=== PATIENT | female | born 1930 | race Caucasian/White ===

== ENCOUNTER → 2018-09-23 | Outpatient (CLI) | payer MEDICARE | END | disposition home or self-care (01) | LOC: SHCH 10:25 | PROVIDERS: ATTEND Internal Medicine Cardiovascular Disease | DX: I08.2 Rheumatic disorders of both aortic and tricuspid valves (principal) | CPT/HCPCS: 93306 ==

== ENCOUNTER 2019-01-24 07:28 | Day surgery (SDC) | payer MEDICARE ==
[2019-01-23 11:45] VITALS: BP 138/65
[2019-01-23 11:58] LABS: BASOPHILS % (AUTO) 0.2 % (0.0-5.0); EOSINOPHILS % (AUTO) 3.3 % (0.0-8.0); HEMATOCRIT 42.8 % (36-48); LYMPHOCYTES % (AUTO) 20.1 % (21.0-51.0); MEAN CORPUSCULAR HEMOGLOBIN 33.9 pg (27.0-33.0); MEAN CORPUSCULAR HGB CONC 34.1 g/dL (32.0-36.0); MEAN CORPUSCULAR VOLUME 99.6 fL (79-99); NEUTROPHILS % (AUTO) 68.4 % (40.0-77.0); NUCLEATED RED BLOOD CELLS 0.1 % (0.0-0.19); PLATELET COUNT (AUTO) 156 K/uL (130-400); RED CELL DISTRIBUTION WIDTH 13.4 % (11.0-15.5); WHITE BLOOD COUNT (AUTO) 7.2 K/uL (4.8-10.8)
[2019-01-23 12:23] LABS: CREATININE 0.8 mg/dL (0.5-1.5); POTASSIUM 4.5 mmol/L (3.5-5.1)
[2019-01-23 12:45] LABS: INR 1.14 (0.85-1.15); PROTHROMBIN TIME 11.9 SEC (9.6-11.6)
[2019-01-23 13:06] LABS: PARTIAL THROMBOPLASTIN TIME 29.4 SEC (26.3-35.5)
[2019-01-24] VITALS (8 sets, daily range): BP systolic 137–153; BP diastolic 44–83
[~2019-01-24] VITALS: Ht 163.8 cm; Wt 60.6 kg
[~2019-01-24 07:28] MED LIST: ACET-2743 PO; ATORVASTATIN PO; BIOT5000 PO; CALC500T13 PO; CLON0.5T12 PO; DIGO125T87 PO; PROP150T28 PO; SODIUM CHLORIDE 0.9% 500ML 500 ML IV SCH; SPIR25TA6 PO; VANCOMYCIN 1GM+NS 250ML 250 ML IV SCH; VIT1CAPS47 PO; WARF-67 PO; WARF3TAB59 PO
--- NOTE | 2019-01-24 07:35 | NUR ---
PATIENT ARRIVED PATIENT ARROIVED TO DAY PATIENT ACCOMPANIED BY DAUGHTER AND SPOUSE. PATIENT AAOX3, RESPIRATIONS UNLABORED, VITAL SIGNS STABLE, DENIES ANY PAIN AT THIS TIME. PROCEDURE CONFIRMED AND VERIFIED WITH PATIENT, ALL QUESTIONS/CONCERNS ADDRESSED. HOSPITAL ROUTINE EXPLAINED TO PATIENT AND FAMILY, BOTH VERBALIZED UNDERSTANDING SIDE RAILS UP X2, CALL BEL IN REACH, BED IN LOWEST POSITION.
[2019-01-24] MEDS ORDERED: BUPIVACAINE/PF 0.25% 10ML VIAL IJ ONE (08:46)
[2019-01-24] MEDS ORDERED: MIDAZOLAM HCL 1 MG/ML 2ML VIAL ONE ×4 (08:46→10:43)
[2019-01-24] MEDS ORDERED: CEFAZOLIN SODIUM 1 GM VIAL ONE (08:46)
[2019-01-24] MEDS ORDERED: MEPERIDINE-PF 25 MG/ML SYG ONE ×4 (08:46→10:43)
[2019-01-24] MEDS ORDERED: LIDOCAINE HCL 1% MDV 50ML VIAL ONE (08:46)
--- NOTE | 2019-01-24 09:15 | NUR ---
PATIENT TRANSFERRED PATIENT TAKEN TO INBOUND CUSTOMER SERVICE REPRESENTATIVE VIA BED BY PRISCILLA LOWRY AND PRISCILLA LANDEROS. PATIENT FAMILY INSTRUCTED TO WAIT IN ROOM IN ORDER TO SPEAK WITH MD AFTER PROCEDURE IS COMPLETE, BOTH VERBALIZED UNDERSTANDING.
[2019-01-24] MEDS ORDERED: VANCOMYCIN 1GM+NS 250ML 500 ML IV ONE (09:32)
[2019-01-24] MEDS ORDERED: THROMBIN-JMI 5000 UNIT/VIAL TP ONE (10:58)
[2019-01-24] MEDS ORDERED: TRAM50TA4 PO (11:39)
--- NOTE | 2019-01-24 11:55 | NUR ---
PATIENT RETURNED PATIENT BROUGHT BACK FROM RN LVN VIA BED BY PRISCILLA RAMIREZ. PATIENT AAOX3, VITAL SIGNS STABLE, RESPIRATIONS UNLABORED, PATIENT DENIES ANY PAIN AT THIS TIME. PATIENT STATES SHE DOES FEEL SORE TO LEFT UPPER CHEST WALL. PRESSURE DRESSING IN PLACE TO LEFT UPPER CHEST WALL. DRESSING IS DRY AND INTACT, NO BLEEDING OR DRAINAGE NOTED. PATIENT'S DAUGHTER AND SPOUSE AT BEDSIDE. PATIENT INSTRUCTD TO STAY IN BED FOR 3 HOURS, PT VERBALIZED UNDERSTANDING.
--- NOTE | 2019-01-24 12:10 | NUR ---
SITE CHECK LEFT UPPER CHEST WITH PRESSURE DRESSING IN PLACE. DRESSING DRY AND INTACT WITHOUT DRAINAGE OR BLEEDING , AREA NONTENDER.
--- NOTE | 2019-01-24 12:25 | NUR ---
SITE CHECK LEFT UPPER CHEST WITH PRESSURE DRESSING IN PLACE. DRESSING DRY AND INTACT WITHOUT DRAINAGE OR BLEEDING , AREA NONTENDER.
--- NOTE | 2019-01-24 12:40 | NUR ---
SITE CHECK LEFT UPPER CHEST WITH PRESSURE DRESSING IN PLACE. DRESSING DRY AND INTACT WITHOUT DRAINAGE OR BLEEDING , AREA NONTENDER.
--- NOTE | 2019-01-24 13:10 | NUR ---
SITE CHECK LEFT UPPER CHEST WITH PRESSURE DRESSING IN PLACE. DRESSING DRY AND INTACT WITHOUT DRAINAGE OR BLEEDING , AREA NONTENDER.
--- NOTE | 2019-01-24 13:40 | NUR ---
SITE CHECK LEFT UPPER CHEST WITH PRESSURE DRESSING IN PLACE. DRESSING DRY AND INTACT WITHOUT DRAINAGE OR BLEEDING , AREA NONTENDER.
--- NOTE | 2019-01-24 14:09 | NUR ---
DISCHARGE INSTRUCTIONS DISCHARGE INSTRUCTIONS PROVIDED TO PATIENT'S DAUGHTER, FOLLOW UP APPOINTMENT PROVIDED WELL. INSTRUCTED TO KEEP PRESSURE DRESSING IN PLACE UNTIL PATIENT SEES DR MONROE TOMORROW. PRESCRIPTION FOR TRAMADOL PROVIDED TO PATIENT'S DAUGHTER AND INSTRUCTIONS ON TRAMADOL PROVIDED. ALL QUESTIONS/CONCERNS ADDRESSED.
== END 2019-01-24 15:15 | disposition home or self-care (01) ==
LOC: DAH 07:28
PROVIDERS: ATTEND Internal Medicine Cardiovascular Disease
DX: T82.191A Other mechanical complication of cardiac pulse generator (battery), initial encounter (principal); Y83.8 Other surgical procedures as the cause of abnormal reaction of the patient, or of later complication, without mention of misadventure at the time of the procedure; I44.2 Atrioventricular block, complete; E11.9 Type 2 diabetes mellitus without complications; E78.5 Hyperlipidemia, unspecified; I11.0 Hypertensive heart disease with heart failure; I50.30 Unspecified diastolic (congestive) heart failure; K21.9 Gastro-esophageal reflux disease without esophagitis; I48.0 Paroxysmal atrial fibrillation; Z88.2 Allergy status to sulfonamides; Z79.01 Long term (current) use of anticoagulants; Z79.899 Other long term (current) drug therapy; Z82.49 Family history of ischemic heart disease and other diseases of the circulatory system; Z82.3 Family history of stroke
CPT/HCPCS: 33222; 36415; 80048; 85025; 85610; 85730; 87070 ×2; 87076 ×2; 93005; A4215; A4216; A4221; A4222; A4223 ×3; A4606; A4663; J0690; J2175 ×4; J2250 ×4; J3370; J3490 ×3; 99156; 99157

== ENCOUNTER 2019-02-03 15:19 | Inpatient (IN) | payer MEDICARE ==
[~2019-02-03] VITALS: Ht 162.6 cm; Wt 62.1 kg
[~2019-02-03 15:19] MED LIST changes: -CLON0.5T12 PO; +CLON0.5T4 PO; -SODIUM CHLORIDE 0.9% 500ML 500 ML IV SCH; +TRAM50TA4 PO; -VANCOMYCIN 1GM+NS 250ML 250 ML IV SCH
[2019-02-03 16:08] LABS: BASOPHILS % (AUTO) 0.8 % (0.0-5.0); EOSINOPHILS % (AUTO) 1.4 % (0.0-8.0); HEMATOCRIT 41.3 % (36-48); LYMPHOCYTES % (AUTO) 10.6 % (21.0-51.0); MEAN CORPUSCULAR HEMOGLOBIN 34.2 pg (27.0-33.0); MEAN CORPUSCULAR HGB CONC 34.7 g/dL (32.0-36.0); MEAN CORPUSCULAR VOLUME 98.4 fL (79-99); MONOCYTES % (AUTO) 6.8 % (3.0-13.0); NEUTROPHILS % (AUTO) 80.4 % (40.0-77.0); NUCLEATED RED BLOOD CELLS 0.1 % (0.0-0.19); PLATELET COUNT (AUTO) 189 K/uL (130-400); RED BLOOD CELL COUNT(AUTO) 4.19 MIL/uL (4.00-5.50); RED CELL DISTRIBUTION WIDTH 13.6 % (11.0-15.5); WHITE BLOOD COUNT (AUTO) 9.3 K/uL (4.8-10.8)
[2019-02-03] MEDS ORDERED: AMPICILLIN SODIUM/SULBACTAM NA 1.5GM VIAL ONE (16:10)
[2019-02-03 16:21] LABS: INR 1.49 (0.85-1.15); PARTIAL THROMBOPLASTIN TIME 36.5 SEC (26.3-35.5); PROTHROMBIN TIME 15.4 SEC (9.6-11.6)
[2019-02-03 16:26] LABS: APPEARANCE,URINE Clear (CLEAR); BILIRUBIN,URINE Negative (NEGATIVE); COLOR,URINE Yellow (YELLOW); GLUCOSE, URINE (UA) Negative (NEGATIVE); KETONES,URINE Trace mg/dL (NEGATIVE); LEUKOCYTE ESTERASE ,URINE Trace (NEGATIVE); NITRATE,URINE Negative (NEGATIVE); OCCULT BLOOD,URINE Nonhemolyzed Trace (NEGATIVE); PROTEIN,URINE POS 1+ mg/dL (NEGATIVE)
[2019-02-03 16:27] LABS: CREATININE 0.8 mg/dL (0.5-1.5)
[2019-02-03 16:30] LABS: ALBUMIN 3.6 g/dL (3.5-5.0); BILIRUBIN,TOTAL 0.5 mg/dL (0.2-1.0); TOTAL PROTEIN, SERUM 7.2 g/dL (6.0-8.3)
[2019-02-03 16:38] LABS: BACTERIA,URINE Rare /HPF (None Seen); MUCUS,URINE Few LPF (None Seen)
[2019-02-03] MEDS ORDERED: SODIUM CHLORIDE 0.9% 500ML 500 ML IV ONE (18:11)
[2019-02-03] MEDS ORDERED: HYDRALAZINE HCL 20 MG/ML VIAL IV PRN (19:15)
[2019-02-03] MEDS ORDERED: MORPHINE SULFATE 2 MG/ML 1ML SYG IVP PRN (19:15)
[2019-02-03] MEDS ORDERED: ACETAMINOPHEN 325 MG TAB PO PRN (19:15)
[2019-02-03] MEDS ORDERED: SODIUM CHLORIDE 0.9% 1000ML 1,000 ML IV SCH (19:15)
[2019-02-03] MEDS ORDERED: ONDANSETRON HCL 4 MG/2 ML VIAL IVP PRN (19:15)
[2019-02-03] MEDS ORDERED: SODIUM CHLORIDE 0.9% 1000ML 1,000 ML IV ONE ×2 (19:55→20:07)
[2019-02-03] MEDS: CLINDAMYCIN 600 MG/D5% WATER 50 ML IV SCH (20:00)
[2019-02-03] MEDS ORDERED: CLINDAMYCIN 600 MG/D5% WATER 0 ML IV ONE (20:02)
[2019-02-03] MEDS ORDERED: CLINDAMYCIN 600 MG/D5% WATER 50 ML IV ONE (20:09)
[2019-02-03] MEDS ORDERED: WARFARIN SODIUM 1 MG TAB PO SCH (21:00)
[2019-02-03] MEDS ORDERED: FAMOTIDINE 20MG TAB 20 MG TAB ONE (21:17)
[2019-02-03] MEDS: UNASYN 3GM+NS 100ML 100 ML IV SCH (22:00)
[2019-02-03 22:45] VITALS: BP 170/71
[2019-02-03] MEDS ORDERED: ATOR10 PO (23:05)
[2019-02-03] MEDS ORDERED: LEVO500T89 PO (23:06)
[2019-02-04 03:00] VITALS: BP 161/66
[2019-02-04] MEDS: UNASYN 3GM+NS 100ML 100 ML IV SCH (04:00)
[2019-02-04] MEDS: CLINDAMYCIN 600 MG/D5% WATER 50 ML IV SCH (04:58)
[2019-02-04 05:03] LABS: HEMATOCRIT 39.7 % (36-48); MEAN CORPUSCULAR HEMOGLOBIN 33.8 pg (27.0-33.0); MEAN CORPUSCULAR HGB CONC 34.1 g/dL (32.0-36.0); MEAN CORPUSCULAR VOLUME 99.1 fL (79-99); PLATELET COUNT (AUTO) 165 K/uL (130-400); RED CELL DISTRIBUTION WIDTH 13.3 % (11.0-15.5); WHITE BLOOD COUNT (AUTO) 7.7 K/uL (4.8-10.8)
[2019-02-04 05:16] LABS: INR 1.67 (0.85-1.15); PROTHROMBIN TIME 16.9 SEC (9.6-11.6)
[2019-02-04 05:24] LABS: ALBUMIN 3.2 g/dL (3.5-5.0); BILIRUBIN,TOTAL 0.4 mg/dL (0.2-1.0); CREATININE 0.7 mg/dL (0.5-1.5); POTASSIUM 3.8 mmol/L (3.5-5.1); TOTAL PROTEIN, SERUM 6.5 g/dL (6.0-8.3)
[2019-02-04 07:54] VITALS: BP 139/57
[2019-02-04] MEDS: **HM** PRESERVISION AREDS PO SCH ×2 (09:00→21:00)
[2019-02-04] MEDS ORDERED: VANCOMYCIN HCL 1 GM VIAL IV SCH ×2 (10:15→21:00)
[2019-02-04] MEDS: VANCOMYCIN 1GM+NS 250ML 250 ML IV SCH ×2 (10:47→21:25)
[2019-02-04] MEDS: DIGOXIN 125 MCG TABLET PO SCH (10:51)
[2019-02-04] MEDS: PROPAFENONE HCL 150 MG TABLET PO SCH ×2 (10:51→21:26)
[2019-02-04] MEDS: FAMOTIDINE/PF 20 MG/2 ML VIAL IV SCH (10:51)
[2019-02-04] MEDS: SPIRONOLACTONE 25 MG TAB PO SCH (10:51)
[2019-02-04 11:40] VITALS: BP 140/98
[2019-02-04] MEDS ORDERED: WARFARIN SODIUM 2 MG TAB PO SCH (16:00)
[2019-02-04] MEDS ORDERED: WARFARIN SODIUM 1 MG TAB PO SCH (16:00)
[2019-02-04 16:09] VITALS: BP 149/59
--- NOTE | 2019-02-04 19:38 | NUR ---
cm note met with patient and and daughter shiva gamble. pt states resides at home with spouse, independent with ambulation and adls, self care. no dme. states has a real estate underwriter come in once a month and spouse transports [place] [facility]. discussed possible snf for rehab, but daughter and pt states do not need that at this time. daughter states she can provide any help she may need at home. dc plan is [place]. Addendum: 02/04/19 at 2002 by CHEKO RODRIGUEZ CM Amended: Links added.
[2019-02-04 20:00] VITALS: BP 144/63
[2019-02-04] MEDS: DOCUSATE SODIUM 100 MG CAP PO SCH (21:26)
[2019-02-04] MEDS: ATORVASTATIN CALCIUM 20 MG TABLET PO SCH (21:26)
[2019-02-04] MEDS: CLONAZEPAM 0.5 MG TABLET PO SCH (21:26)
[2019-02-04] MEDS: TRAMADOL HCL 50 MG TABLET PO PRN (21:45)
[2019-02-04 23:26] VITALS: BP 144/63
[2019-02-05 03:39] VITALS: BP 149/68
[2019-02-05 05:16] LABS: EOSINOPHILS % (AUTO) 3.6 % (0.0-8.0); HEMATOCRIT 39.5 % (36-48); LYMPHOCYTES % (AUTO) 23.1 % (21.0-51.0); MEAN CORPUSCULAR HEMOGLOBIN 34.2 pg (27.0-33.0); MEAN CORPUSCULAR HGB CONC 34.8 g/dL (32.0-36.0); MEAN CORPUSCULAR VOLUME 98.4 fL (79-99); NEUTROPHILS % (AUTO) 64.3 % (40.0-77.0); PLATELET COUNT (AUTO) 172 K/uL (130-400); RED BLOOD CELL COUNT(AUTO) 4.02 MIL/uL (4.00-5.50); RED CELL DISTRIBUTION WIDTH 13.6 % (11.0-15.5); WHITE BLOOD COUNT (AUTO) 7.1 K/uL (4.8-10.8)
[2019-02-05 05:21] LABS: CREATININE 0.8 mg/dL (0.5-1.5); POTASSIUM 3.8 mmol/L (3.5-5.1)
[2019-02-05 07:32] VITALS: BP 134/56
[2019-02-05] MEDS: DOCUSATE SODIUM 100 MG CAP PO SCH ×2 (08:59→21:41)
[2019-02-05] MEDS: SPIRONOLACTONE 25 MG TAB PO SCH (08:59)
[2019-02-05] MEDS: FAMOTIDINE/PF 20 MG/2 ML VIAL IV SCH (08:59)
[2019-02-05] MEDS: PROPAFENONE HCL 150 MG TABLET PO SCH ×2 (08:59→21:41)
[2019-02-05] MEDS: VANCOMYCIN 1GM+NS 250ML 250 ML IV SCH ×2 (08:59→21:42)
[2019-02-05] MEDS: DIGOXIN 125 MCG TABLET PO SCH (09:00)
[2019-02-05] MEDS: **HM** PRESERVISION AREDS PO SCH ×2 (09:00→21:00)
[2019-02-05 09:24] LABS: INR 2.61 (0.85-1.15)
[2019-02-05 12:06] VITALS: BP 138/55
[2019-02-05] MEDS: LACTULOSE 20 GM/30 ML UDCUP PO SCH ×2 (12:06→21:41)
[2019-02-05] MEDS ORDERED: WARFARIN SODIUM 2 MG TAB PO SCH (16:00)
[2019-02-05 16:15] VITALS: BP 144/59
[2019-02-05 19:24] VITALS: BP 154/69
--- NOTE | 2019-02-05 20:00 | NUR ---
ROUNDS PATIENT AWAKE AND ALERT. VOICES ALL NEEDS. NO COMPLAINTS OF PAIN VOICED AT THIS TIME. RESP EVEN AND UNLABORED. NO SOB NOTED. ON ROOM AIR. VITALS STABLE. AFEBRILE. TOLERATING IV ABT WELL. NO ADVERSE REACTIONS NOTED. LEFT CHEST WALL INCISION DRY AND WELL APPROXIMATED. 11 LD INTACT. NO DRAINAGE NOTED. UP WITH MINIMAL ASSIST. DAUGHTER AT BEDSIDE TO ASSIST WITH ADLS. IN GOOD SPIRITS. PATIENT HAD A BM. LACTULOSE WILL BE DISCONTINUED. CALL LIGHT WITHIN REACH. WILL CONTINUE TO BE OBSERVED. Addendum: 02/06/19 at 0222 by MARTHA SOLIS RN RN Amended: Links added.
[2019-02-05] MEDS: CLONAZEPAM 0.5 MG TABLET PO SCH (21:41)
[2019-02-05] MEDS: ATORVASTATIN CALCIUM 20 MG TABLET PO SCH (21:41)
[2019-02-05] MEDS: TRAMADOL HCL 50 MG TABLET PO PRN (21:41)
[2019-02-05 23:20] VITALS: BP 169/68
[2019-02-06 03:59] VITALS: BP 151/69
[2019-02-06 05:55] LABS: BASOPHILS % (AUTO) 0.7 % (0.0-5.0); EOSINOPHILS % (AUTO) 3.1 % (0.0-8.0); HEMATOCRIT 40.2 % (36-48); LYMPHOCYTES % (AUTO) 20.3 % (21.0-51.0); MEAN CORPUSCULAR HGB CONC 34.3 g/dL (32.0-36.0); MEAN CORPUSCULAR VOLUME 99.1 fL (79-99); MONOCYTES % (AUTO) 7.8 % (3.0-13.0); NEUTROPHILS % (AUTO) 68.1 % (40.0-77.0); NUCLEATED RED BLOOD CELLS 0.1 % (0.0-0.19); PLATELET COUNT (AUTO) 160 K/uL (130-400); RED BLOOD CELL COUNT(AUTO) 4.06 MIL/uL (4.00-5.50); RED CELL DISTRIBUTION WIDTH 13.5 % (11.0-15.5); WHITE BLOOD COUNT (AUTO) 7.7 K/uL (4.8-10.8)
[2019-02-06 06:07] LABS: CREATININE 0.7 mg/dL (0.5-1.5); POTASSIUM 3.5 mmol/L (3.5-5.1)
[2019-02-06 07:52] VITALS: BP 150/69
[2019-02-06] MEDS: SPIRONOLACTONE 25 MG TAB PO SCH (08:37)
[2019-02-06] MEDS: DOCUSATE SODIUM 100 MG CAP PO SCH (08:37)
[2019-02-06] MEDS: FAMOTIDINE/PF 20 MG/2 ML VIAL IV SCH (08:37)
[2019-02-06] MEDS: DIGOXIN 125 MCG TABLET PO SCH (08:38)
[2019-02-06] MEDS: **HM** PRESERVISION AREDS PO SCH (08:46)
[2019-02-06] MEDS: VANCOMYCIN 1GM+NS 250ML 250 ML IV SCH (09:00)
[2019-02-06 09:59] LABS: INR 2.55 (0.85-1.15); PROTHROMBIN TIME 25.3 SEC (9.6-11.6)
[2019-02-06 11:27] VITALS: BP 144/57
--- NOTE | 2019-02-06 13:31 | NUR ---
RD Notification - Coumadin Teaching, Poor PO Upon visit, Pt reports improved PO intake. Pt tolerating current Heart healthy diet order, No leafy greens d/t food drug interaction with Coumadin medication. Pt with report of no GI distress. Pt reports previous education of Coumadin Diet and denies need for current diet education. Pt LBM 02/05/19. Pt monitored labs: Alb 3.2, CRP 27.90. RD to continue to monitor. Please notify RD as additional nutrition concerns arise. Thank you. Addendum: 02/06/19 at [address] RD Amended: Links added.
--- NOTE | 2019-02-06 13:35 | NUR ---
Diet Education HUANG attempt at Coumadin Food and Drug Interaction Diet Education. Pt reports previous education of Coumadin Diet and denies need for current diet education. Addendum: 02/06/19 at [address] RD Amended: Links added.
[2019-02-06] MEDS ORDERED: DOCU-275 PO (15:42)
[2019-02-06 16:16] VITALS: BP 160/71
== END 2019-02-06 16:44 | disposition home or self-care (01) | DRG 315 ==
LOC: EDH 15:19 → OBSVTOIN 18:50 → EDHIP 18:50 → 4BH 21:18
PROVIDERS: ADMIT Internal Medicine Pulmonary Disease; ATTEND Internal Medicine Pulmonary Disease
DX: T82.7XXA Infection and inflammatory reaction due to other cardiac and vascular devices, implants and grafts, initial encounter (principal); L03.313 Cellulitis of chest wall; I44.2 Atrioventricular block, complete; I48.91 Unspecified atrial fibrillation; I10 Essential (primary) hypertension; F03.90 Unspecified dementia, unspecified severity, without behavioral disturbance, psychotic disturbance, mood disturbance, and anxiety; Y83.1 Surgical operation with implant of artificial internal device as the cause of abnormal reaction of the patient, or of later complication, without mention of misadventure at the time of the procedure; I25.10 Atherosclerotic heart disease of native coronary artery without angina pectoris; I48.0 Paroxysmal atrial fibrillation; K59.00 Constipation, unspecified; I49.5 Sick sinus syndrome; Z82.3 Family history of stroke; Z82.49 Family history of ischemic heart disease and other diseases of the circulatory system; Z95.0 Presence of cardiac pacemaker; Y92.89 Other specified places as the place of occurrence of the external cause
CPT/HCPCS: 36415; 80048; 80053; 80202; 81001; 83605; 85025; 85027; 85610; 85651; 85730; 86140; 87040; G0378; J0295; J2405; J3370; J3490; J7030; J7040

== ENCOUNTER 2019-03-30 08:33 | Observation (INO) | payer MEDICARE ==
[2019-03-28 13:58] LABS: EOSINOPHILS % (AUTO) 2.3 % (0.0-8.0); HEMATOCRIT 41.1 % (36-48); LYMPHOCYTES % (AUTO) 21.8 % (21.0-51.0); MEAN CORPUSCULAR HEMOGLOBIN 32.2 pg (27.0-33.0); MEAN CORPUSCULAR HGB CONC 32.4 g/dL (32.0-36.0); MEAN CORPUSCULAR VOLUME 99.5 fL (79-99); MONOCYTES % (AUTO) 9.6 % (3.0-13.0); PLATELET COUNT (AUTO) 202 K/uL (130-400); RED BLOOD CELL COUNT(AUTO) 4.13 MIL/uL (4.00-5.50); RED CELL DISTRIBUTION WIDTH 13.5 % (11.0-15.5); WHITE BLOOD COUNT (AUTO) 6.9 K/uL (4.8-10.8)
[2019-03-28 14:05] LABS: CREATININE 0.8 mg/dL (0.5-1.5); POTASSIUM 3.7 mmol/L (3.5-5.1)
[2019-03-28 14:08] LABS: INR 1.06 (0.85-1.15); PROTHROMBIN TIME 11.1 SEC (9.6-11.6)
[2019-03-28 14:12] VITALS: BP 118/57
[2019-03-30] VITALS (10 sets, daily range): BP systolic 95–133; BP diastolic 47–77
[~2019-03-30] VITALS: Ht 162.6 cm; Wt 72.9 kg
[~2019-03-30 08:33] MED LIST changes: -ACET-2743 PO; +APIX2.5T PO; +ATOR10 PO; -ATORVASTATIN PO; -CALC500T13 PO; +CEFAZOLIN SODIUM 1 GM VIAL IVP SCH; +CETI10TA57 PO; -DIGO125T87 PO; +DOCU100C33 PO; +FURO20TA4 PO; +L.AC1CAP6 PO; -TRAM50TA4 PO; -WARF-67 PO; -WARF3TAB59 PO
[2019-03-30] MEDS ORDERED: SODIUM CHLORIDE 0.9% 1000ML 1,000 ML IV ONE (08:44)
--- NOTE | 2019-03-30 09:00 | NUR ---
IMANI INFORMED DR. MONROE THAT PT HELD ELIQUIS 3 DAYS PRIOR NOT 2 [address]. MONROE , PROCEED WITH PLANNED PROCEDURE.
[2019-03-30] MEDS ORDERED: MIDAZOLAM HCL 1 MG/ML 2ML VIAL ONE ×3 (14:45→16:27)
[2019-03-30] MEDS ORDERED: CEFAZOLIN SODIUM 1 GM VIAL ONE (14:45)
[2019-03-30] MEDS ORDERED: BUPIVACAINE/PF 0.25% 30ML VIAL IJ ONE (14:45)
[2019-03-30] MEDS ORDERED: MEPERIDINE-PF 25 MG/ML SYG ONE ×3 (14:45→16:27)
[2019-03-30] MEDS ORDERED: LIDOCAINE HCL 1% MDV 50ML VIAL ONE (14:46)
[2019-03-30] MEDS ORDERED: IODIXANOL 320 MG/ML 100 ML VIAL ONE (14:46)
[2019-03-30] MEDS ORDERED: VANCOMYCIN 1GM+NS 250ML 500 ML IV ONE (15:13)
[2019-03-30] MEDS ORDERED: CETIRIZINE HCL 5 MG TABLET PO PRN (17:15)
[2019-03-30] MEDS ORDERED: CLONAZEPAM 0.5 MG TABLET PO PRN (17:15)
[2019-03-30] MEDS: ACETAMINOPHEN-CODEINE 300/30MG TAB PO PRN (18:43)
[2019-03-30] MEDS: **HM**Vit C/E/Zn/Coppr/Lutein/Zeaxan (Preservision Areds 2 Soft PO SCH (21:00)
[2019-03-30] MEDS ORDERED: ATORVASTATIN CALCIUM 20 MG TABLET PO SCH (21:00)
[2019-03-30] MEDS: PROPAFENONE HCL 150 MG TABLET PO SCH (21:14)
[2019-03-30] MEDS: DOCUSATE SODIUM 100 MG CAP PO SCH (21:15)
[2019-03-30] MEDS: FUROSEMIDE 20 MG TABLET PO SCH (21:15)
[2019-03-31 03:00] VITALS: BP 114/66
[2019-03-31] MEDS: ACETAMINOPHEN-CODEINE 300/30MG TAB PO PRN (06:32)
--- NOTE | 2019-03-31 08:00 | NUR ---
AM ASSESSMENT PT SITTING IN BED, RESTING. DAUGHTER @ BEDSIDE. A/O X 3. NO SOB. NO DISTRESS NOTED. DENIES CHEST PAIN OR DISCOMFORT. DENIES INCISIONAL PAIN. TELE: PACED. DENIES N/V AND/OR DIARRHEA. RT UPPER CHEST INCISION DSG DRY & INTACT. NO BLEEDING, NO HEMATOMA NOTED. DENIES INCISIONAL PAIN @ THIS TIME. ARM PRECAUTIONS REVIEWED & REINFORCED. UP W/ASSISTANCE. INSTRUCTED TO CALL FOR ASSISTANCE. CALL CEM W/IN REACH.
[2019-03-31] MEDS: DOCUSATE SODIUM 100 MG CAP PO SCH (08:18)
[2019-03-31] MEDS: PROPAFENONE HCL 150 MG TABLET PO SCH (08:19)
[2019-03-31] MEDS: FUROSEMIDE 20 MG TABLET PO SCH (08:19)
[2019-03-31] MEDS: **HM**Vit C/E/Zn/Coppr/Lutein/Zeaxan (Preservision Areds 2 Soft PO SCH (08:20)
[2019-03-31] MEDS ORDERED: ACIDOPH PO SCH (09:00)
[2019-03-31] MEDS ORDERED: **HM**(Biotin 5,000 MCG PO SCH (09:00)
[2019-03-31] MEDS ORDERED: SPIRONOLACTONE 25 MG TAB PO SCH (09:00)
[2019-03-31] MEDS ORDERED: PARACASEI B LACTIS PO SCH (09:00)
[2019-03-31 09:15] VITALS: BP 107/66
[2019-03-31] MEDS ORDERED: ONDA8TAB5 PO (11:12)
[2019-03-31 11:55] VITALS: BP 122/74
--- NOTE | 2019-03-31 11:55 | NUR ---
DISCHARGE VERBAL & WRITTEN DISCHARGE INSTRUCTIONS REVIEWED & GIVEN TO PT & PT'S DAUGHTER. QUESTIONS ENCOURAGED & CLARIFIED. PROPER CARE & ACTIVITY AFTER PPM PLACEMENT REVIEWED. NEW PRESCRIBED MEDICATION REVIEWED. INFORMED PRESCRIPTION TRANSMITTED TO PHARMACY IN FILE. TELE ANAND REMOVED & IV DISCONTINUED EARLIER BY Aj JOLLY RN. PT & DAUGHTER TO GATHER PERSONAL BELONGINGS. WILL NOTIFY STAFF WHEN READY TO BE TAKEN TO PRIVATE VEHICLE.
--- NOTE | 2019-03-31 12:15 | NUR ---
DISCHARGE PT TAKEN TO PRIVATE VEHICLE VIA WC BY Alyx GERARD PCP, ACCOMPANIED BY DAUGHTER. NO DISTRESS NOTED.
== END 2019-03-31 12:15 | disposition home or self-care (01) ==
LOC: DAH 08:33 → 2AH 08:34 → DAH 08:34
PROVIDERS: ADMIT Internal Medicine; ATTEND Internal Medicine
DX: I48.0 Paroxysmal atrial fibrillation (principal); I11.0 Hypertensive heart disease with heart failure; I50.30 Unspecified diastolic (congestive) heart failure; E11.9 Type 2 diabetes mellitus without complications; E78.5 Hyperlipidemia, unspecified; K21.9 Gastro-esophageal reflux disease without esophagitis; R55 Syncope and collapse; I44.2 Atrioventricular block, complete; Z95.0 Presence of cardiac pacemaker; Z90.49 Acquired absence of other specified parts of digestive tract; Z90.89 Acquired absence of other organs; Z79.01 Long term (current) use of anticoagulants; Z79.899 Other long term (current) drug therapy; Z88.2 Allergy status to sulfonamides
CPT/HCPCS: 33208; 36415; 71045; 80048; 85025; 85610; 85730; 96360; A4215; A4216; A4221; A4222; A4223 ×3; A4606; A4663; C1785; C1898 ×2; G0378 ×19; J2175 ×3; J2250 ×3; J3370; J3490 ×2; J7030; 99156; 99157; J0690; Q9967